=== PATIENT | female | born 1990 | race Caucasian/White ===

== ENCOUNTER 2017-11-25 21:25 | Emergency (ER) | payer OTHER ==
[~2017-11-25] VITALS: Ht 160 cm; Wt 64.4 kg
[2017-11-25] MEDS ORDERED: PRENATAL TABLE1 EAC3 PO (21:50)
[2017-11-25] MEDS ORDERED: PROMETRIUM200 MG PO (21:50)
== END 2017-11-26 04:53 | disposition home or self-care (01) ==
LOC: ER 21:25
DX: O26.891 Other specified pregnancy related conditions, first trimester (principal); O26.851 Spotting complicating pregnancy, first trimester; R10.2 Pelvic and perineal pain; Z34.01 Encounter for supervision of normal first pregnancy, first trimester